=== PATIENT | female | born 1965 | race American Indian/Alaskan Native ===

== ENCOUNTER 2020-06-30 09:31 | Emergency (ER) | payer BC ==
[2020-06-30 09:59] VITALS: BP 116/80
--- NOTE | 2020-06-30 11:00 | XRay Report ---
EXAMINATION: Right knee radiograph, 3 views, 06/30/2020 CLINICAL INFORMATION: Right knee pain after fall COMPARISON: None. FINDINGS: There is no evidence of acute fracture or subluxation. No significant bony degenerative changes are noted. No focal soft tissue swelling is identified. IMPRESSION: 1. No radiographic evidence of acute bony abnormality of the right knee. Signer Name: Anne Marie Antonio MD Signed: 06/30/2020 10:56 AM Workstation Name: [id number]
--- NOTE | 2020-06-30 11:06 | Emergency Department Report ---
ED General Adult HPI - General Chief complaint: Fall Stated complaint: FALL Time Seen by Provider: 06/30/20 10:20 Source: patient Mode of arrival: Ambulatory Limitations: Physical Limitation - History of Present Illness Initial comments: 54-year-old female with a past medical history of vitamin D deficiency presents to the ER today complaining of right knee pain after an accidental fall yesterday. Patient states that she was walking down the sidewalk when she excellently stepped in a hole fell forward and injured her right knee. She reports abrasions to the dorsal aspect of her right wrist but denies any significant pain to that area. She denies any head injury. She denies any neck pain, back pain, chest pain or abdominal pain. She states that the knee pain is worse when she weight bears and ambulates. She did try ice and Tylenol with mild relief of her symptoms. MD Complaint: Fall/Right knee pain -: Sudden (yesterday) Location: lower extremity (right knee) Radiation: non-radiation - Related Data Previous Rx's Medication Instructions Recorded Last Taken Type Ketorolac [Toradol] 10 mg PO Q6H PRN #20 tablet 06/30/20 Unknown Rx Allergies Allergy/AdvReac Type Severity Reaction Status Date / Time Penicillins Allergy Rash Verified 06/30/20 09:55 Sulfa (Sulfonamide Allergy Rash Verified 06/30/20 09:55 Antibiotics) ED Review of Systems ROS: Stated complaint: FALL Other details as noted in HPI ED Past Medical Hx - Past Medical History Previous Medical History?: Yes Additional medical history: Tumor left lung - Surgical History Past Surgical History?: Yes Additional Surgical History: left lung - Social History Smoking Status: Never Smoker Substance Use Type: None - Medications Home Medications: Home Medications Medication Instructions Recorded Confirmed Last Taken Type Ketorolac [Toradol] 10 mg PO Q6H PRN #20 tablet 06/30/20 Unknown Rx ED Physical Exam - General Limitations: Physical Limitation General appearance: alert, in no apparent distress - Eye Eye exam: Present: normal appearance, PERRL, EOMI Pupils: Present: normal accommodation - ENT ENT exam: Present: normal exam, mucous membranes moist - Respiratory Respiratory exam: Absent: normal lung sounds bilaterally - Cardiovascular Cardiovascular Exam: Present: regular rate - Extremities Exam Extremities exam: Present: other (TTP anterior right knee with mild bruising noted. Mild swelling noted. No effusion. No deformity. Increased pain with flex and ext. ) - Neurological Exam Neurological exam: Present: alert, oriented X3, CN II-XII intact, abnormal gait (Mild limping gait but otherwise nl. ) - Psychiatric Psychiatric exam: Present: normal affect, normal mood - Skin Skin exam: Present: intact ED Course Vital Signs 06/30/20 09:57 Temperature 98.4 F Pulse Rate 73 Respiratory 20 Rate Blood Pressure 116/80 O2 Sat by Pulse 100 Oximetry ED Medical Decision Making - Radiology Data Radiology results: report reviewed [facility] [address] [place] [address] XRay Report Signed Patient: VANESSA HILL MR#: [id number] : 1965 Acct:[id number] Age/Sex: 54 / F ADM Date: 06/30/20 Loc: ED Attending Dr: Ordering Physician: DANIELITO CAMERON Date of Service: 06/30/20 Procedure(s): XR knee 3V RT Accession Number(s): [id number] cc: DANIELITO CAMERON Fluoro Time In Minutes: EXAMINATION: Right knee radiograph, 3 views, 06/30/2020 CLINICAL INFORMATION: Right knee pain after fall COMPARISON: None. FINDINGS: There is no evidence of acute fracture or subluxation. No significant bony degenerative changes are noted. No focal soft tissue swelling is identified. IMPRESSION: 1. No radiographic evidence of acute bony abnormality of the right knee. Signer Name: Anne Marie Antonio MD Signed: 06/30/2020 10:56 AM Workstation Name: [id number] Transcribed By: EB Dictated By: Anne Marie Antonio MD Electronically Authenticated By: Anne Marie Antonio MD Signed Date/Time: 06/30/20 1056 DD/ 1055 TD/TT: - Medical Decision Making The patient presented with a complaint of a fall or minor trauma. The patient is now resting comfortably and , is alert and in no distress. The patient has a normal mental status and is neurologically intact. Knee xray show nothing acute. The history, exam, diagnostic testing and current condition do not demonstrate signs of clinically significant intracranial, intrathoracic, intra- abdominal, or musculoskeletal trauma. The vital signs have been stable. The patient's condition is stable and appropriate for discharge. The patient will pursue further outpatient evaluation with the primary care physician or other designated or consulting physician as indicated in the discharge instruction. Critical care attestation.: If time is entered above; I have spent that time in minutes in the direct care of this critically ill patient, excluding procedure time. ED Disposition Clinical Impression: Contusion of knee, right Disposition: DC-01 TO HOME OR SELFCARE Is pt being admited?: No Does the pt Need Aspirin: No Condition: Stable Instructions: Contusion, [id number] Additional Instructions: Rest, ice and elevate leg as often as possible for next couple days. Use crutches and FCO wrap as instructed. Follow-up with your family development extension specialist on return home to [place]. Return to the ER if your symptoms changes or worsens in any way. Prescriptions: Ketorolac [Toradol] 10 mg PO Q6H PRN #20 tablet PRN Reason: Pain Referrals: ABBY RITCHIE MD [Staff Physician] - 3-5 Days Time of Disposition: 11:23
== END 2020-06-30 13:30 | disposition home or self-care (01) ==
LOC: ED 09:31
DX: S80.01XA Contusion of right knee, initial encounter (principal); Z98.890 Other specified postprocedural states; Z79.899 Other long term (current) drug therapy; Z88.0 Allergy status to penicillin; Z88.2 Allergy status to sulfonamides; W17.2XXA Fall into hole, initial encounter; Y93.89 Activity, other specified; Y92.89 Other specified places as the place of occurrence of the external cause; Y99.8 Other external cause status